=== PATIENT | female | born 1945 | race Hispanic/Latino ===

== ENCOUNTER → 2019-03-11 | Outpatient (CLI) | payer OTHER ==
[~2019-03-11] MED LIST: ASPIR-LOW81 MG PO; BENICAR HCT 201 EACH PO; BENICAR PO; CYMBALTA60 MG PO; LOSARTAN-HCTZ1 EAC2 PO; LOVASTATIN20 MG PO; LUNESTA2 MG PO; MULTI-VITAMIN1 EACH PO; PANTOPRAZOLE SO40 MG PO; VITAMIN D 3 PO
--- NOTE | 2019-03-11 12:50 | Diagnostic Imaging Report ---
Facial bone radiographs, 4 views Clinical indication: Fall, pain Comparison: None Findings: 4 views of the facial bones were obtained. There is no radiographic evidence of acute fracture or dislocation. Impression: No radiographic evidence of acute fracture or dislocation. Signed by: Aldair Mak MD on 03/11/2019 12:46 PM
--- NOTE | 2019-03-11 12:51 | Diagnostic Imaging Report ---
Skull radiograph, 6 views Clinical indication: Fall Comparison: None Findings: 6 views of the skull were obtained. There is no radiographic evidence of skull fracture. The bone mineralization is normal. Impression: No radiographic evidence of fracture. Signed by: Aldari Mak MD on 03/11/2019 12:48 PM
== END ==
LOC: RAD 11:14
PROVIDERS: ATTEND Family Medicine
DX: S00.83XA Contusion of other part of head, initial encounter (principal); S00.432A Contusion of left ear, initial encounter; W18.09XA Striking against other object with subsequent fall, initial encounter
CPT/HCPCS: 70150; 70260

== ENCOUNTER → 2019-06-16 | Day surgery (SDC) | payer MEDICARE ==
[2019-06-12 13:07] LABS: BASOPHILS # (AUTO) 0.1 (0.0-0.1); BASOPHILS % 0.8 % (0.0-1.0); EOSINOPHILS # (AUTO) 0.4 (0.0-0.4); EOSINOPHILS % 5.4 % (0.0-6.0); HEMATOCRIT 41.9 % (34.2-44.1); HEMOGLOBIN 13.9 g/dL (12.0-16.0); LYMPHOCYTES # (AUTO) 2.3 (1.0-3.2); MEAN CORPUSCULAR HEMOGLOBIN 27.4 pg (28-32); MEAN CORPUSCULAR HGB CONC 33.2 g/dL (31-35); MEAN CORPUSCULAR VOLUME 82.6 fL (81-99); MONOCYTES # (AUTO) 0.5 (0.2-0.8); MONOCYTES % 7.3 % (4.4-11.3); NEUTROPHILS # (AUTO) 3.3 (2.1-6.9); NEUTROPHILS % 50.3 % (38.7-80.0); PLATELET COUNT 206 x10e3/uL (140-360); RED BLOOD COUNT 5.07 x10e6/uL (3.6-5.1); RED CELL DISTRIBUTION WIDTH 12.3 % (11.7-14.4)
[~2019-06-16] MED LIST changes: +OMEGA 3-6-9 11200 M1 PO; +PROPOFOL IV EMULSION 10 MG/ML 20 ML VIAL ONE; +VITAMIN B COMP1 EACH PO; +VITAMIN B-121000 MCG PO
--- OUTSIDE RECORDS SUMMARY | 2019-06-16 13:23 | XMS REPORT ---
Author Author [facility] Address Unknown Phone Unavailable Care Team Providers Care Car Cleaning Supervisor Name Role Phone MICAH PRITCHARD Unavailable Unavailable Problems This patient has no known problems. Allergies, Adverse Reactions, Alerts This patient has no known allergies or adverse reactions. Medications This patient has no known medications. Results Test Description Test Time Test Comments Text Results Atomic Results Result Comments SKULL SERIES COMPLETE 2019-03-11 12:47:00 [place] [address] Patient Name: MORALES LOPEZ MR #: [id number] : 1945 Age/Sex: 73/F Req #: [id number] [facility] Physician: Ordered by: MICAH PRITCHARD MD Report #: [id number] Location: [facility] Room/Bed: Procedure: [id number] DX/SKULL SERIES COMPLETE Exam Date: 03/11/19 Exam Time: 1150 REPORT STATUS: Signed Skull radiograph, 6 views Clinical indication: Fa ll Comparison: None Findings: 6 views of the skull were obtained. There is no radiographic evidence of skull fracture. The bone mineralization is normal. Impression: No radiographic evidence of fracture. Signed by: Aldair Manuel MD on 03/11/2019 12:48 PM Dictated By: ALDAIR MANUEL MD 1248 Transcribed By: TRINA on 03/11/19 1248 COPY TO: MICAH PRITCHARD MD FACIAL BONES COMP 2019-03-11 12:45:00 [place] [address] Patient Name: MORALES LOPEZ MR #: [id number] : 1945 Age/Sex: 73/F Req #: [id number] Adm Physician: Ordered by: MICAH PRITCHARD MD Report #: [id number] Location: [facility] Room/Bed: Procedure: [id number] DX/FACIAL BONES COMP Exam Date: 03/11/19 Exam Time: 1114 REPORT STATUS: Signed Facial bone radiographs, 4 views Clinical indication: F all, pain Comparison: None Findings: 4 views of the facial bones were obtained. There is no radiographic evidence of acute fracture or dislocation. Impression: No radiographic evidence of acute fracture or dislocation. Signed by: Aldair Manuel MD on 03/11/2019 12:46 PM Dictated By: ALDAIR MANUEL MD 1246 Transcribed By: TRINA on 03/11/19 1246 COPY TO: MICAH PRITCHARD MD
[2019-06-16 14:30] VITALS: BP 136/75
[2019-06-16 15:09] LABS: ALANINE AMINOTRANSFERASE 16 IU/L (0-55); ALBUMIN 3.6 g/dL (3.5-5.0); ALBUMIN/GLOBULIN RATIO 1.1 (0.8-2.0); ALKALINE PHOSPHATASE 73 IU/L (40-150); ANION GAP 10.6 mmol/L (8-16); BLOOD UREA NITROGEN 12 mg/dL (7-26); BUN/CREATININE RATIO 17 (6-25); CALCIUM 8.7 mg/dL (8.4-10.2); CARBON DIOXIDE 28 mmol/L (22-29); CHLORIDE 107 mmol/L (98-107); CREATININE, SERUM 0.72 mg/dL (0.57-1.11); EST GLOMERULAR FILTRATION RATE > 60 ML/MIN (60-); GLUCOSE 93 mg/dL (74-118); POTASSIUM 3.6 mmol/L (3.5-5.1); SODIUM 142 mmol/L (136-145)
--- NOTE | 2019-06-16 15:21 | Operative Report ---
DATE OF PROCEDURE: 06/16/2019 SURGEON: Ravinder Constantino MD PROCEDURE: EGD with biopsies. INDICATIONS FOR PROCEDURE: History of melena, heartburn. MEDICATIONS: The patient was done under MAC, please see anesthesiologist's note. PROCEDURE IN DETAIL: With the patient in the left lateral decubitus position, the flexible fiberoptic Olympus gastroscope was introduced into the esophagus under direct visualization without any difficulty. There were some prominent subepithelial veins versus grade 1 esophageal varices noted in mid and distal esophagus. There was no active bleeding or stigmata of recent hemorrhage. The scope was then advanced with ease into the stomach, mucosa overlying the antrum and the body revealed some patchy erythema and [id number]-og-eoehgsxy edema, and biopsies were obtained and sent to stain for H. pylori. A single erosion was noted in the antrum and that was biopsied. Minute hyperplastic-appearing polyps were noted in the body of the stomach, some were partially excised with the cold biopsy forceps. Pylorus was of normal contour and shape, was intubated with ease and the scope was advanced all the way to the second portion of the duodenum. It was then withdrawn slowly, mucosa overlying the proximal second portion and duodenal bulb appeared to be within normal limits. The scope was then withdrawn back into the stomach and retroflexed, mucosa overlying the fundus and the cardia appeared to be within normal limits. The scope was then straightened out, it was subsequently withdrawn, and the patient tolerated the procedure well. IMPRESSION: 1. Prominent subepithelial esophageal veins versus grade 1 esophageal varices. There was no active bleeding or stigmata of recent hemorrhage. 2. Gastritis, biopsied, biopsies sent to stain for Helicobacter pylori. 3. Gastric polyps, body, minute, hyperplastic-appearing, some were excised with the cold biopsy forceps. 4. Antral, erosion, biopsied. PLAN: Follow up histology. Continue Protonix 40 mg 1 p.o. before meals b.i.d. Add Carafate 1 g p.o. before meals t.i.d. and at bedtime. Ravinder Constantino MD [facility] /[id number] cc: Gary Lopez MD
== END | disposition home or self-care (01) ==
LOC: ENDO 13:21
PROVIDERS: ATTEND Internal Medicine Gastroenterology
DX: K29.50 Unspecified chronic gastritis without bleeding (principal); K31.7 Polyp of stomach and duodenum; K25.9 Gastric ulcer, unspecified as acute or chronic, without hemorrhage or perforation; K44.9 Diaphragmatic hernia without obstruction or gangrene; K21.9 Gastro-esophageal reflux disease without esophagitis; Z86.010 Personal history of colon polyps; K76.0 Fatty (change of) liver, not elsewhere classified; G47.33 Obstructive sleep apnea (adult) (pediatric); E78.00 Pure hypercholesterolemia, unspecified; I10 Essential (primary) hypertension; Z88.6 Allergy status to analgesic agent; Z01.810 Encounter for preprocedural cardiovascular examination; Z01.812 Encounter for preprocedural laboratory examination; Z79.82 Long term (current) use of aspirin; Z68.35 Body mass index [BMI] 35.0-35.9, adult; Z80.0 Family history of malignant neoplasm of digestive organs
CPT/HCPCS: 36415 ×2; 43239; 80053; 85025; 93005; J2704

== ENCOUNTER → 2020-08-12 | Day surgery (SDC) | payer MEDICARE, OTHER ==
[2020-08-09 10:09] LABS: BASOPHILS % 0.6 % (0.0-1.0); EOSINOPHILS # (AUTO) 0.4 (0.0-0.4); EOSINOPHILS % 5.8 % (0.0-6.0); HEMOGLOBIN 13.4 g/dL (12.0-16.0); LYMPHOCYTES # (AUTO) 2.2 (1.0-3.2); LYMPHOCYTES % 34.3 % (18.0-39.1); MEAN CORPUSCULAR HEMOGLOBIN 27.6 pg (28-32); MEAN CORPUSCULAR HGB CONC 33.5 g/dL (31-35); MEAN CORPUSCULAR VOLUME 82.5 fL (81-99); MONOCYTES # (AUTO) 0.4 (0.2-0.8); MONOCYTES % 6.4 % (4.4-11.3); NEUTROPHILS # (AUTO) 3.3 (2.1-6.9); NEUTROPHILS % 52.6 % (38.7-80.0); PLATELET COUNT 206 x10e3/uL (140-360); RED BLOOD COUNT 4.85 x10e6/uL (3.6-5.1); RED CELL DISTRIBUTION WIDTH 12.4 % (11.7-14.4)
[~2020-08-12] MED LIST changes: +FENTANYL CITRATE/PF 100MCG/2 ML INJ ONE; +LIDOCAINE HCL 2% LOCAL INJ 5 ML SDV VIAL INJ ONE; +MIDAZOLAM HCL 2 MG/2 ML VIAL ONE; +SUCRALFATE1 GM PO; +VITAMIN C PO
[2020-08-12 12:50] VITALS: BP 136/71
== END | disposition home or self-care (01) ==
LOC: OR 08:10
PROVIDERS: ATTEND Internal Medicine Gastroenterology
DX: K29.70 Gastritis, unspecified, without bleeding (principal); Z86.010 Personal history of colon polyps; I85.00 Esophageal varices without bleeding; K44.9 Diaphragmatic hernia without obstruction or gangrene; K21.9 Gastro-esophageal reflux disease without esophagitis; K57.30 Diverticulosis of large intestine without perforation or abscess without bleeding; K64.8 Other hemorrhoids; K76.0 Fatty (change of) liver, not elsewhere classified; I25.10 Atherosclerotic heart disease of native coronary artery without angina pectoris; I10 Essential (primary) hypertension; F32.9 Major depressive disorder, single episode, unspecified; Z88.6 Allergy status to analgesic agent; Z01.810 Encounter for preprocedural cardiovascular examination; Z01.812 Encounter for preprocedural laboratory examination; Z20.822 Contact with and (suspected) exposure to COVID-19; Z79.82 Long term (current) use of aspirin; Z80.0 Family history of malignant neoplasm of digestive organs
CPT/HCPCS: 36415; 43239; 45378; 85025; 88305; 88312; 93005; J2001; J2250; J2704; J3010; U0002